=== PATIENT | male | born 1975 | race Caucasian/White ===

== ENCOUNTER → 2021-08-29 19:37 | Outpatient (CLI) | payer SELFPAY | PROVIDERS: Visit Provider Nurse Practitioner Family | DX: Z20.822 Contact with and (suspected) exposure to COVID-19 (principal) | CPT/HCPCS: C9803; U0003; U0005 ==

== ENCOUNTER 2023-03-14 14:41 | Emergency (ER) | payer BC, SELFPAY ==
[2023-03-14 14:42] VITALS: BP 131/89; PULSE 76; RESP 17; TEMP 37; O2SAT 98; BMI 24.3
[2023-03-14 14:45] VITALS: BP 131/89; PULSE 65; O2SAT 98
--- NOTE | 2023-03-14 15:00 | XR_ITS ---
FINAL REPORT CLINICAL HISTORY: soa FINDINGS: The heart size is normal. The mediastinum is within normal limits. There is bronchial wall thickening consistent with bronchitis. There is no pleural effusion. There is no pneumothorax. The bony thorax is intact. IMPRESSION: Bronchitis. Reviewed, Interpreted and Dictated by Drake Villa III, MD Transcribed by Joel Wong Authenticated and [facility]
--- NOTE | 2023-03-14 15:04 | PC.NURSE ---
XR AT BEDSIDE
--- NOTE | 2023-03-14 15:10 | PC.NURSE ---
PT MEDICATED PER EMAR, NO NEEDS AT THIS TIME. CALL LIGHT WITHIN REACH
[2023-03-14 15:11] LABS: Basophils # 0.1 K/mm3 (0-0.2); Basophils % 0.5 % (0.1-2.0); Eosinophils # 0.1 K/mm3 (0.0-0.4); Eosinophils % 1.1 % (0.1-12.0); Hematocrit 50.7 % (42.0-52.0); Hemoglobin 16.6 g/dL (14.1-18.0); Lymphocytes # 2.6 K/mm3 (0.7-4.5); Lymphocytes % 25.3 % (10-50); Mean Corpuscular HGB Conc 32.8 g/dL (31.8-35.4); Mean Corpuscular Hemoglobin 31.5 pg (27.0-31.2); Monocytes # 0.5 K/mm3 (0.1-1.0); Neutrophils # 7.1 K/mm3 (1.8-7.8); Neutrophils % 68.1 % (37.0-80.0); Platelet Count 281 K/mm3 (142-424); Red Blood Count 5.28 M/mm3 (4.60-6.20); Red Cell Distribution Width 12.6 % (11.5-17.5); White Blood Count 10.4 K/mm3 (4.8-10.8)
[2023-03-14 15:12] LABS: Chloride 102 mmol/L (98-107)
[2023-03-14 15:13] LABS: Potassium 4.6 mmoL/L (3.5-5.1); Sodium 138 mmol/L (136-145)
[2023-03-14 15:15] LABS: Alanine Aminotransferase 24 U/L (12-78); Alkaline Phosphatase 85 U/L (38-126); Anion Gap 11.6 mEq/L (5-15); Aspartate Amino Transferase 44 U/L (17-59); Bilirubin,Total 0.4 mg/dl (0.2-1.3); Blood Urea Nitrogen 11 mg/dl (9-20); Carbon Dioxide 29 mmol/L (22.0-30.0); Creatinine Clearance Estimated 92 mL/min (50-200); Estimated Glomerular Filt Rate 79 ml/min (>60); GFR (African American) 96 ML/MIN (>60)
[2023-03-14 15:16] LABS: Albumin Level 4.1 g/dl (3.5-5.0); Albumin/Globulin Ratio 1.4 (1.1-1.8); Calcium 9.3 mg/dl (8.4-10.2); Glucose 110 mg/dl (74-100); Lipase 41 U/L (23-300); Magnesium 1.8 mg/dl (1.6-2.3); Total Protein,Serum 7.1 g/dl (6.3-8.2)
[2023-03-14 15:30] VITALS: PULSE 61; O2SAT 97
[2023-03-14 15:31] LABS: Troponin I < 0.01 ng/ml (0.00-0.034)
--- NOTE | 2023-03-14 15:33 | HMH.EDGENADL ---
Discharge Plan Disposition Patient Disposition: Home, Self-Care Prescriptions Prescriptions: New ondansetron 4 mg tablet,disintegrating 4 mg PO Q8H PRN (Reason: Nausea) Qty: 15 0RF Referrals Follow up/Referrals: Provider,Referral, [Primary Care Provider] - See instructions Activity Restrictions/Add. Instructions Additional Instructions/Restrictions: Return for worsening vomiting or any other concerns within the next 8 hours otherwise follow-up with your primary care physician within the next few days Clinical Impressions Clinical Impression: Vomiting Instructions Patient Instructions: DI for Diarrhea and Traveler's Diarrhea -- Adult, DI for Diarrhea and Traveler's Diarrhea -- Child, DI for Nausea -- Adult, DI for Nausea -- Child Discharge ED Provider: Herman Schmitz General Adult HPI General Chief complaint: Nausea/Vomiting/Diarrhea Stated complaint: Chemical exposure@work 03/12, vomiting, SOA Time Seen by Provider: 03/14/23 14:45 Mode of Arrival: Ambulatory Source of Information: Patient Limitations: No Limitations Description of Symptoms (Recalled from ER Triage Doc. 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 pt reports they were only given gloves and a suit to clean in and intermittenly became dizzy while cleaning for the few hours they were in there. History of Present Illness HPI narrative: 47-year-old male was working at [employer] and says that he inhaled a chemical and then began having nausea vomiting and coughing fits he thinks the chemical was industrial gait acetone base pain tender. He became lightheaded afterward. His spouse was also exposed however her symptoms improved and he has continued to have nausea. No chest pain abdominal pain diarrhea fever or chills. Related Data Previous Rx's Medication Instructions Recorded ondansetron 4 mg disintegrating 4 mg PO Q8H PRN Nausea #15 tabs 03/14/23 tablet Allergies Allergy/AdvReac Type Severity Reaction Status Date / Time red dye Allergy Mild Rash Verified 03/14/23 15:03 [facility] Disclaimer: The information contained in this section may have been updated after the patient was seen, as this information can be updated by other users. Social History Smoking Status: Current every day smoker alcohol intake: never current occupational status: employed Travel in the last 8 weeks: Inside the [place] ROS Obtained: Yes All systems reviewed & no additional complaints except as documented Constitutional Constitutional: Denies fatigue and Denies headache(s) Eyes Eyes: Denies dry eyes ENT Ears, Nose, Mouth, and Throat: Denies dizziness and Denies headache(s) Cardiovascular Cardiovascular: Denies dyspnea Respiratory Respiratory: Denies dyspnea Gastrointestinal Gastrointestingal: Denies coffee ground emesis Genitourinary Male Genitourinary: Denies flank pain Musculoskeletal Musculoskeletal: Denies joint swelling Integumentary/Breasts Skin/Breast: Denies dry skin Neurologic Neurologic: Denies dizziness and Denies headache(s) Endocrine Endocrine: Denies fatigue Hematologic/Lymphatic Henatologic/Lymphatic: Denies easy bleeding Allergic/Immunologic Allergic/Immunologic: Denies urticaria Physical Exam General General appearance: alert and in no apparent distress Eye Eye exam: Present PERRL and EOMI ENT ENT exam: Present normal exam and normal oropharynx Neck Neck exam: Present normal inspection Chest Chest inspection: Present symmetric chest wall rise Respiratory Respiratory exam: Present normal lung sounds bilaterally; Absent respiratory distress Cardiovascular Cardiovascular exam: Present regular rate and normal rhythm Abdominal Exam Abdominal exam: Present soft; Absent distention, tenderness, guarding, rebound, Dougherty's sign or tenderness at McBurney's Point Rectal Exam Rectal exam: Present deferred
--- NOTE | 2023-03-14 15:40 | PC.NURSE ---
DR AQUINO AT BEDSIDE TO UPDATE PT AND REEVALUATE PT
[2023-03-14 15:58] VITALS: BP 127/89; PULSE 86; RESP 17; TEMP 37; O2SAT 98
== END 2023-03-14 16:08 | disposition home or self-care (01) ==
PROVIDERS: Emergency Provider Emergency Medicine
DX: T52.4X1A Toxic effect of ketones, accidental (unintentional), initial encounter (principal); R06.02 Shortness of breath; R42 Dizziness and giddiness; R11.2 Nausea with vomiting, unspecified; Y99.0 Civilian activity done for income or pay; F17.200 Nicotine dependence, unspecified, uncomplicated
CPT/HCPCS: 71045; 80053; 83690; 83735; 84484; 85025; 96361; 96374; 99284; 99285; J2405